=== PATIENT | female | born 1975 | race Hispanic/Latino ===

== ENCOUNTER 2024-02-14 09:13 | Outpatient (CLI) | payer BC | END 2024-02-14 09:14 | disposition home or self-care (01) | LOC: SCSRAD 09:13 | PROVIDERS: ATTEND Physician Assistant | DX: M79.602 Pain in left arm (principal); M62.838 Other muscle spasm; M50.322 Other cervical disc degeneration at C5-C6 level; M50.323 Other cervical disc degeneration at C6-C7 level; M47.812 Spondylosis without myelopathy or radiculopathy, cervical region; M43.12 Spondylolisthesis, cervical region; M19.012 Primary osteoarthritis, left shoulder | CPT/HCPCS: 72052 ==